=== PATIENT | female | born 1970 | race Hispanic/Latino ===

== ENCOUNTER 2024-05-14 08:39 | Day surgery (SDC) | payer BC ==
[2024-05-13 09:43] LABS: Absolute Eosinophils 0.1 K/uL (0-0.5); Absolute Lymphocytes (CBC) 1.7 K/uL (0.7-4.9); Absolute Monocytes 0.5 K/uL (0.1-1.3); Absolute Neutrophil 4.6 K/uL (1.8-8.0); Basophils % 0.4 % (0-1.3); Eosinophils % 1.1 % (0-4.4); Hematocrit 34.6 % (36.0-45.0); Hemoglobin 11.5 g/dL (12.0-15.0); Lymphocytes % 24.1 % (15.3-44.8); MCH 29.9 pg (27.0-35.0); MCHC 33.3 g/dL (32.0-36.0); MCV 89.9 fL (80-100); MPV 7.9 fL (7.6-11.3); Monocytes % 7.7 % (3.3-12.3); Neutrophils % 66.7 % (41.7-73.7); Platelets 370 thou/uL (152-406); RBC Red Blood Cell Count 3.84 M/uL (3.86-4.86); Red Cell Distribution Width 13.9 % (12.1-15.2)
[2024-05-13 09:50] LABS: Specific Gravity < 1.005 (1.005-1.030); Sqamous Epithelial None Seen /HPF (None Seen); Urine Bacteria None Seen /HPF (<20); Urine Bilirubin NEGATIVE (Negative); Urine Blood 1+ (Negative); Urine Clarity Turbid (Clear); Urine Color Colorless (Yellow); Urine Culture Reflex Order NOT NEEDED; Urine Glucose NEGATIVE (Negative); Urine Ketones NEGATIVE (Negative); Urine Microscopic Reflex YN ORDER UMIC; Urine Nitrite NEGATIVE (Negative); Urine Protein NEGATIVE (Negative); Urine RBC None Seen /HPF (None Seen); Urine Urobilinogen Normal (Normal); Urine WBC <5 /HPF (<5); Urine Yeast (Budding) Trace /HPF (None Seen); Urine pH 6.5 (5.0-7.0)
[2024-05-13 10:03] LABS: Specific Gravity 1.002 (1.005-1.030)
[2024-05-14] MEDS ORDERED: Ringers Lactate 1,000 ML IV ONE (09:21)
[2024-05-14] MEDS: SCOPOLAMINE HYDROBROMIDE PATCH TD ONE (09:30)
[2024-05-14] MEDS ORDERED: propofoL 200 MG/20 ML VIAL IV ONE (10:35)
[2024-05-14] MEDS ORDERED: LIDOCAINE 2% MPF 5 ML VIAL ONE ×2 (10:35→12:18)
[2024-05-14] MEDS ORDERED: ROCURONIUM 50 MG/5 ML VIAL IV ONE (10:35)
[2024-05-14] MEDS ORDERED: MIDAZOLAM HCL 2 MG/2 ML INJ ONE (10:36)
[2024-05-14] MEDS ORDERED: FENTANYL CITR 250 MCG/5 ML ONE (10:36)
[2024-05-14] MEDS ORDERED: MAGNESIUM SULFATE 1 gm IVPB 1 GM/100 ML BAG IV ONE (11:06)
[2024-05-14] MEDS ORDERED: DEXMEDETOMIDINE HCL 200 MCG/2 ML VIAL ONE (11:06)
[2024-05-14] MEDS ORDERED: SUGAMMADEX SODIUM 200 MG/2 ML VIAL IV ONE (11:06)
[2024-05-14] MEDS ORDERED: KETAMINE HCL IN 0.9 % NACL 50 MG/5 ML SYRINGE IV ONE (11:56)
[2024-05-14] MEDS ORDERED: KETOROLAC 30 MG/ML INJ ONE (11:56)
[2024-05-14] MEDS ORDERED: EPHEDRINE SULF 50 MG/ML VIAL ONE (11:59)
[2024-05-14] MEDS ORDERED: ONDANSETRON 4 MG/2 ML VIAL ONE (12:02)
[2024-05-14] MEDS ORDERED: dexAMETHasone 4 MG/ML VIAL ONE (12:02)
[2024-05-14] MEDS: CEFAZOLIN SODIUM 2 GM/VIAL ONE (12:07)
[2024-05-14] MEDS: BUPIVACAINE 0.25% PF 30 ML VIAL ONE (12:08)
[2024-05-14] MEDS ORDERED: Mastisol Adhesive Liq ONE (13:24)
[2024-05-14] MEDS: Ringers Lactate 1,000 ML IV ONE (14:30)
[2024-05-14 14:53] VITALS: BP 126/69; TEMP 97.5; O2SAT 99
[2024-05-14] MEDS: HYDROCODONE/APAP 5/325 MG TAB ONE (15:51)
--- NOTE | 2024-05-14 16:49 | EKG ---
Test Date: 2024-05-13 Test Time: 10:12:21 Crane Oiler: LANRE MEASUREMENT RESULTS: Intervals: Rate: 70 KS: 136 QRSD: 66 QT: 336 QTc: 362 [place]: P: 60 KS: 136 QRS: 15 T: 53 INTERPRETIVE STATEMENTS: Normal sinus rhythm Possible Left atrial enlargement Borderline ECG No previous ECG available for comparison Electronically Signed On 05-14-24 16:45:20 COMPUTER ARTIST by Praveen Robertson
--- NOTE | 2024-05-15 00:47 | OP ---
Date of Procedure: 05/14/2024 Surgeon: Martita Parry MD Bathhouse Attendant: Teresa Olvera. Preoperative Diagnoses: Abnormal uterine bleeding (AUB-O), pelvic pain and possible pelvic mass. Postoperative Diagnoses: AUB-O, right uterosacral ligament, cystic mass, and small right paratubal c yst. Procedures Performed: 1. Total laparoscopic hysterectomy. 2. Bilateral salpingectomy. 3. Removal of the right paratubal cyst and the uterosacral ligament cyst. Anesthesia: General endotracheal. Estimated Blood Loss: 25. Urine Output: 200. Specimens: Uterus and bilateral tubes, pelvic washings, right paratubal cyst was included in the rampart rine specimen where the tubes were attached and the right uterosacral ligament cystic mass that was e xcised was carefully placed in a separate specimen cup. Complications: No complications. Drains: No drains. Condition: Stable. Findings: 3 cm from the incision of the uterosacral ligament. There was a bluish cystic mass about 1 cm that had to be excised on the peritoneum and this was handed out as a separate specimen. Ovarie s were completely unremarkable and as per the request of the patient, they were left alone intact. Indication: The patient is a 54-year-old 3, para 2-0-12, presented with abnormal uterine ble eding after appeared of cessation of periods. She was then investigated with a transvaginal ultrasou nd and endometrial sampling and her labs showed perimenopause, not complete menopause. An endometria l pathology showed focal glandular crowding, but no atypia or malignancy were diagnosed. So, we disc ussed about all the different options for observation, treatment, and given her symptoms and her frus tration with bleeding that has continued for a prolonged period of time, the patient wanted to procee d with definitive treatment and I counseled her very small risk of her pathologic diagnosis, which is a focal glandular crowding be an early sign of endometrial cancer, however, pelvic washings were rec ommended, bilateral salpingo-oophorectomy was also recommended. The patient is significantly lean to wards preserving her ovaries if no pathologies grossly detected during the surgery, understanding abhijit t if she needed the removal of ovaries for any pathologic reasons or for any future pain or any risk of ovarian cancer. She definitely understood the benefits and risks and wanted preservation of her o varies. Description Of Procedure: After informed consent was verified in the preoperative area, her was present at the bedside. A clear discussion was had. Then, she was taken back to the OR. She wa s placed in a supine fashion on the operating table. General anesthesia was given. She was placed i n a dorsal lithotomy position using Louis stirrups. Abdomen was prepped with ChloraPrep, and vulva, vagina, and perineum with Betadine and draped in a sterile fashion after the arms were tucked. The p atient was grounded and SCDs were started. Time-out was done and procedure started. Speculum placed to expose the cervix. Anterior lip grasped with 2 Allis clamps, dilated to 16-[place] and a large cup uterine manipulator was inserted and fixed in place. Mike was placed to drain the bladder and attached to gravity bag and this area was draped. 1 cm infraumbilical incision made with a scalpel using the open laparoscopy technique. Fascia was in cised tagged with 0 Vicryl sutures. The peritoneum was entered sharply. Isiah introduced and after adequate insufflation, site of entry was checked and was unremarkable. Upper abdominal surfaces, pe ritoneum, omentum were all inspected and no evidence of any masses here or endometrial lesions or per itoneal lesions. The patient was then placed in T-dejuan. A 10/12 suprapubic and two 5 left and right lower quadrant ports were placed under direct vision after the patient was placed in Trendelenburg p osition. Pelvic washings were performed and then the procedure started. Right uterosacral ligament cyst excision, the peritoneum was picked up, excised widely and the entire cyst was excised using the LigaSure, handed out for permanent pathology. The tube on the left side distal fimbriated end was picked up and dissection carried along the mesosa lpinx. Then, on the utero-ovarian ligament, round ligament, broad ligament to take down the attachme nts on the left side, similar dissection performed on the right side as well. Paratubal cyst on the right was also removed. Peritoneum opened up on the anterior vaginal wall and the bladder reflected inferiorly carefully at l east dissected 2 cm below the level of the cup and then vessels were isolated on both sides, taken do wn with the help of LigaSure. Then, the cardinal ligaments taken down with bipolar and monopolar james k blade. Then, once all the dissection was performed, circumferential colpotomy was performed with m onopolar hook blade and the specimen retrieved through the vagina. Ovaries were intact and did not h ave any risk of torsion. Thorough irrigation suction was performed. There was an area of bleeding f rom the right cardinal ligament and this was cauterized with the fine tip bipolar. Then closure of t he cuff was performed with the help of 0 PDS sutures, 2 simple angle sutures, and 3 [id number] in the middle including the uterosacral ligament distally into the fascia of the posterior vaginal wa ll and the anterior vaginal wall. There was good cuff apposition and closure. Thorough irrigation a nd suction were performed. No evidence of any injury to the bowel or the ureters. They had good per istalsis. Ovaries were intact and pedicles hemostatic. All the trocars were removed under direct vi clemencia. Gas was desufflated. Fascia at the umbilicus closed with the tagged 0 Vicryl sutures tied to each other and simple 0 Vicryl suture at the suprapubic fascial site, all skin incisions with interru pted 4-0 Vicryl. Mike and the vaginal occluder were removed. Instrument, needle, and sponge counts were correct at the end of the case. The patient tolerated the procedure well. She will follow up in 1 week and then in 4 weeks. All instruc tions given, debriefed. ARTEMIO/GLADYS Voice ID: [id number] Report ID: [id number]
== END 2024-05-14 17:36 | disposition home or self-care (01) ==
LOC: PRE 08:39 → OR 17:36
PROVIDERS: ATTEND Obstetrics & Gynecology
PROC: 0UT74ZZ Resection of Bilateral Fallopian Tubes, Percutaneous Endoscopic Approach (ICD-10-PCS; 2024-05-14)
PROC: 0UB44ZZ Excision of Uterine Supporting Structure, Percutaneous Endoscopic Approach (ICD-10-PCS; 2024-05-14)
PROC: 0UT94ZZ Resection of Uterus, Percutaneous Endoscopic Approach (ICD-10-PCS; principal; 2024-05-14 10:30)
DX: N92.1 Excessive and frequent menstruation with irregular cycle (principal); R19.00 Intra-abdominal and pelvic swelling, mass and lump, unspecified site; N88.8 Other specified noninflammatory disorders of cervix uteri; N83.8 Other noninflammatory disorders of ovary, fallopian tube and broad ligament
CPT/HCPCS: 58571; 58662; 93005; 85025; 81001; 80048; 36415; 86900; 88108; 86850; 81025; 86901; 88305 ×2; 88307; J3475; J2704; J1100; J2003 ×2; J2250; J3010; J2405; J7120 ×2; A4314